=== PATIENT | male | born 1960 | race African-American/Black ===

== ENCOUNTER 2016-08-30 12:05 | Emergency (ER) | payer SELFPAY | END 2016-08-30 15:25 | disposition home or self-care (01) | LOC: D.ER 12:05 | DX: I10 Essential (primary) hypertension (principal); Z91.14 Patient's other noncompliance with medication regimen; K21.9 Gastro-esophageal reflux disease without esophagitis ==

== ENCOUNTER → 2016-09-03 11:41 | Emergency (ER) | payer SELFPAY | END | disposition left against medical advice (07) | LOC: D.ER 11:41 | DX: Z02.9 Encounter for administrative examinations, unspecified (principal) ==

== ENCOUNTER 2016-09-07 12:07 | Emergency (ER) | payer SELFPAY ==
[2016-09-07 14:52] LABS: BASOPHILS 0.6 % (0.0-2.0); EOSINOPHILS 2.7 % (0-7); HEMATOCRIT 44.9 % (42.0-54.0); HEMOGLOBIN 15.2 g/dL (13.5-17.5); IMMATURE GRANULOCYTES 0.1 % (0-5); LYMPHOCYTES 32.9 % (15-50); MCH 30.8 pg (26.0-34.0); MCHC 33.9 g/dL (31.0-37.0); MCV 91.1 fL (80.0-100.0); MEAN PLATELET VOLUME 10.9 fL (7.4-10.4); MONOCYTES 6.7 % (2-11); PLATELET COUNT 250 10x3/uL (130-400); RBC 4.93 10x6/uL (4.20-6.10); RDW 13.1 % (11.5-14.5); WBC 8.1 10x3/uL (4.8-10.8)
[2016-09-07 15:11] LABS: ANION GAP 9.8 mmol/L (8-16); BILIRUBIN - TOTAL 0.74 mg/dL (0.2-1.3); CALCIUM 9.2 mg/dL (8.5-10.1); CARBON DIOXIDE 30.4 mmol/L (21.0-32.0); CREATININE - SERUM 1.2 mg/dL (0.6-1.3); POTASSIUM - SERUM 4.2 mmol/L (3.5-5.1); PROTEIN - SERUM 7.9 g/dL (6.4-8.2)
== END 2016-09-07 15:45 | disposition home or self-care (01) ==
LOC: D.ER 12:07
PROVIDERS: Emergency Medicine; Physician Assistant
DX: I10 Essential (primary) hypertension (principal); K21.9 Gastro-esophageal reflux disease without esophagitis

== ENCOUNTER 2017-08-20 18:33 | Emergency (ER) | payer MEDICAID | END 2017-08-20 20:30 | disposition home or self-care (01) | LOC: D.ER 18:33 | DX: J06.9 Acute upper respiratory infection, unspecified (principal); J01.90 Acute sinusitis, unspecified; I10 Essential (primary) hypertension; K21.9 Gastro-esophageal reflux disease without esophagitis ==

== ENCOUNTER 2017-10-13 14:47 | Emergency (ER) | payer MEDICAID ==
[2017-10-13 15:51] LABS: ALBUMIN 3.8 g/dL (3.4-5.0); ANION GAP 14.2 mmol/L (8-16); BILIRUBIN - TOTAL 0.96 mg/dL (0.2-1.3); CALCIUM 8.8 mg/dL (8.5-10.1); CARBON DIOXIDE 24.5 mmol/L (21.0-32.0); CREATININE - SERUM 1.1 mg/dL (0.6-1.3); POTASSIUM - SERUM 3.7 mmol/L (3.5-5.1); PROTEIN - SERUM 7.6 g/dL (6.4-8.2)
== END 2017-10-13 18:08 | disposition home or self-care (01) ==
LOC: D.ER 14:47
PROVIDERS: Emergency Medicine
DX: I10 Essential (primary) hypertension (principal); K21.9 Gastro-esophageal reflux disease without esophagitis

== ENCOUNTER 2018-02-21 17:58 | Emergency (ER) | payer MEDICAID ==
[~2018-02-21] VITALS: Ht 175.3 cm; Wt 90.9 kg
[2018-02-21 18:01] VITALS: Ht 175.3 cm; Wt 90.9 kg
[2018-02-21] MEDS ORDERED: [UNRECOGNIZED DRUG - REMARK] (18:03)
[2018-02-21] MEDS ORDERED: VIBRAMYCIN 100100 MG PO (20:13)
[2018-02-21] MEDS ORDERED: HYDROCODONE-APA1 TAB PO (20:13)
[2018-02-21 20:35] VITALS: BP 132/97
== END 2018-02-21 20:35 | disposition home or self-care (01) ==
LOC: D.ER 17:58
DX: L03.011 Cellulitis of right finger (principal); I10 Essential (primary) hypertension

== ENCOUNTER 2018-12-26 14:49 | Emergency (ER) | payer SELFPAY ==
[~2018-12-26] VITALS: Ht 175.3 cm; Wt 90.9 kg
[~2018-12-26 14:49] MED LIST: HYDROCODONE-APA1 TAB PO; VIBRAMYCIN 100100 MG PO; [UNRECOGNIZED DRUG - REMARK]
[2018-12-26 15:02] VITALS: Ht 175.3 cm; Wt 90.9 kg
[2018-12-26] MEDS ORDERED: "\\\"WATER PILL\\\"" (15:03)
[2018-12-26] MEDS ORDERED: VOLTAREN75 MG PO (16:39)
[2018-12-26] MEDS ORDERED: CATAPRES0.1 MG PO (16:40)
[2018-12-26 16:50] VITALS: BP 164/87
== END 2018-12-26 16:50 | disposition home or self-care (01) ==
LOC: D.ER 14:49
DX: I10 Essential (primary) hypertension (principal); M25.562 Pain in left knee; M25.561 Pain in right knee

== ENCOUNTER 2019-04-10 17:23 | Emergency (ER) | payer SELFPAY ==
[~2019-04-10] VITALS: Ht 175.3 cm; Wt 86.4 kg
[~2019-04-10 17:23] MED LIST changes: +"\\\"WATER PILL\\\""; +CATAPRES0.1 MG PO; +VOLTAREN75 MG PO
[2019-04-10 18:02] VITALS: Ht 175.3 cm; Wt 86.4 kg
[2019-04-10 18:47] LABS: BASOPHILS 0.1 % (0-2); EOSINOPHILS 0.5 % (0-7); HEMATOCRIT 43.7 % (42.0-54.0); HEMOGLOBIN 14.9 g/dL (13.5-17.5); IMMATURE GRANULOCYTES 0.3 % (0-5); LYMPHOCYTES 8.8 % (15-50); MCH 31.4 pg (26.0-34.0); MCHC 34.1 g/dL (31.0-37.0); MCV 92.2 fL (80.0-100.0); MEAN PLATELET VOLUME 9.8 fL (7.4-10.4); NEUTROPHILS 83.3 % (40-80); PLATELET COUNT 227 10x3/uL (130-400); RBC 4.74 10x6/uL (4.20-6.10); RDW 13.5 % (11.5-14.5); WBC 16.4 10x3/uL (4.8-10.8)
[2019-04-10 19:03] LABS: APPEARANCE HAZY (CLEAR); COLOR YELLOW (YELLOW)
[2019-04-10 19:08] LABS: BILIRUBIN NEGATIVE (NEGATIVE); GLUCOSE NEGATIVE (NEGATIVE); KETONE NEGATIVE (NEGATIVE); NITRITE NEGATIVE (NEGATIVE); PROTEIN 1+ mg/dL (NEGATIVE); UROBILINOGEN NORMAL (NORMAL)
[2019-04-10 19:12] LABS: BACTERIA MANY /hpf (NEGATIVE); WHITE CELLS - URINE 25-50 /hpf (NEGATIVE)
[2019-04-10 19:42] LABS: ALBUMIN 3.3 g/dL (3.4-5.0); ALKALINE PHOSPHATASE 58 U/L (46-116); ALT (SGPT) 16 U/L (10-68); AMYLASE - SERUM 113 U/L (25-115); BILIRUBIN - TOTAL 1.08 mg/dL (0.2-1.3); CALC OSMOLALITY 278 mosm/kg (275-300); CALCIUM 8.9 mg/dL (8.5-10.1); CARBON DIOXIDE 27.7 mmol/L (21.0-32.0); CHLORIDE - SERUM 105 mmol/L (98-107); CREATININE - SERUM 1.1 mg/dL (0.6-1.3); GLUCOSE 97 mg/dL (74-106); LIPASE 91 U/L (73-393); SODIUM 141 mmol/L (136-145); UREA NITROGEN 8 mg/dL (7-18); eGFR NON AFRICAN AMERICAN 73 mL/min (90-120)
[2019-04-10 19:50] LABS: TROPONIN-I < 0.017 ng/mL (0.000-0.060)
[2019-04-10] MEDS ORDERED: CIPRO500 MG PO (21:29)
[2019-04-10] MEDS ORDERED: PHENAZOPYRIDIN200 MG PO (21:29)
[2019-04-10 22:00] VITALS: BP 150/88
== END 2019-04-10 22:02 | disposition home or self-care (01) ==
LOC: D.ER 17:23
PROVIDERS: Family Medicine
DX: N39.0 Urinary tract infection, site not specified (principal)

== ENCOUNTER → 2020-10-28 | Emergency (ER) | payer SELFPAY ==
[~2020-10-28] VITALS: Ht 175.3 cm; Wt 86.4 kg
[~2020-10-28] MED LIST changes: +CIPRO500 MG PO; +CLONIDINE HCL0.1 MG PO; +NORVASC10 MG PO; +PHENAZOPYRIDIN200 MG PO
[2020-10-28 12:33] VITALS: BP 178/91; Ht 175.3 cm; Wt 86.4 kg
== END | disposition home or self-care (01) ==
LOC: D.ER 12:25
DX: I10 Essential (primary) hypertension (principal); Z76.0 Encounter for issue of repeat prescription